=== PATIENT | female | born 1970 | race Two or more races ===

== ENCOUNTER 2018-04-07 18:43 | Emergency (ER) | payer BC ==
[~2018-04-07] VITALS: Ht 243.8 cm; Wt 60.3 kg
[2018-04-07 19:25] VITALS: BP 124/80
[2018-04-07] MEDS ORDERED: ACETAMINOPHEN 325 MG TABLET ONE (19:38)
[2018-04-07] MEDS: ACETAMINOPHEN 325 MG TABLET PO ONE (19:39)
[2018-04-07] MEDS ORDERED: HYDROCODONE/APAP 5/325MG 1 EACH TABLET ONE (21:24)
[2018-04-07] MEDS: HYDROCODONE/APAP 5/325MG 1 EACH TABLET PO ONE (21:26)
== END 2018-04-07 21:32 | disposition home or self-care (01) ==
LOC: ER 18:43
DX: S16.1XXA Strain of muscle, fascia and tendon at neck level, initial encounter (principal); S63.502A Unspecified sprain of left wrist, initial encounter; S60.415A Abrasion of left ring finger, initial encounter; S50.812A Abrasion of left forearm, initial encounter; R51 Headache; V23.4XXA Motorcycle driver injured in collision with car, pick-up truck or van in traffic accident, initial encounter; Y93.89 Activity, other specified; Y92.488 Other paved roadways as the place of occurrence of the external cause; Y99.8 Other external cause status
CPT/HCPCS: 29125; 73110; 73130; 99284; A4606; Z7610